=== PATIENT | male | born 1990 ===

== ENCOUNTER 2018-11-12 10:53 | Emergency (ER) | payer OTHER ==
[2018-11-12 10:56] VITALS: BMI 25.1
[2018-11-12 10:57] VITALS: TEMP 98.1
--- NOTE | 2018-11-12 12:13 | ED PDOC ---
Upper Extremity Pain/Injury Time Seen by Provider: 11/12/18 11:01 Chief Complaint (Nursing): Upper Extremity Problem/Injury Chief Complaint (Provider): Upper Extremity Problem/Injury History Per: Patient History/Exam Limitations: no limitations Onset/Duration Of Symptoms: Hrs (x1) Current Symptoms Are (Timing): Still Present Additional Complaint(s): 28 y/o male brought in by EMS for evaluation of an upper extremity injury, onset one hour prior to arrival. Patient states he was working out, doing stretching exercises when he sustained an injury to the right shoulder. PMD: non [facility] Provider Past Medical History Reviewed: Historical Data, Nursing Documentation, Vital Signs Vital Signs: Last Vital Signs Temp 98.1 F 11/12/18 10:56 Pulse 70 11/12/18 10:56 Resp 20 11/12/18 10:56 BP 145/79 11/12/18 10:56 Pulse Ox 100 11/12/18 10:56 - Medical History PMH: Asthma - Surgical History Surgical History: No Surg Hx - Family History Family History: States: Unknown Family Hx - Immunization History Hx Influenza Vaccination: No - Home Medications Home Medications: Ambulatory Orders Medication Instructions Recorded Ibuprofen [Motrin Tab] 600 mg PO Q8 PRN #60 tab 11/22/16 Oseltamivir Cap [Tamiflu] 75 mg PO BID #10 cap 11/22/16 Naproxen [Naprosyn] 500 mg PO BID PRN #15 tablet 11/12/18 - Allergies Allergies/Adverse Reactions: Allergies Allergy/AdvReac Type Severity Reaction Status Date / Time No Known Allergies Allergy Verified 11/22/16 17:51 Review of Systems ROS Statement: Except As Marked, All Systems Reviewed And Found Negative Musculoskeletal: Positive for: Shoulder Pain (right) Physical Exam - Reviewed Nursing Documentation Reviewed: Yes Vital Signs Reviewed: Yes - Physical Exam Appears: Positive for: In Acute Distress Pulses-Radial (L): 2+ Pulses-Radial (R): 2+ Extremity: Positive for: Deformity (to the right shoulder. ), Other (Sensations intact). Negative for: Normal ROM - ECG O2 Sat by Pulse Oximetry: 100 (RA) Pulse Ox Interpretation: Normal Medical Decision Making Medical Decision Making: Time: 1101 Impression: Right Shoulder Dislocation Plan: -- Shoulder Right XR Time: 1147 -- Morphine 2 mg IV -- Morphine 2 mg IV -- Morphinie 2 mg IV -- ED Nitrous Oxide via Mask Once -- Will perform Right Shoulder Reduction. See procedure note for further management. Time: 1201 -- Shoulder Right XR Time: 1237 1ST XR RESULTS FINDINGS: BONES: Normal. No fracture. JOINTS: Anterior inferior dislocation right humeral head with respect to the glenoid SOFT TISSUES: Normal. OTHER FINDINGS: None. IMPRESSION: Anterior inferior dislocation right humeral head with respect to the glenoid 2ND XR RESULTS FINDINGS: BONES: No definitive evidence of acute displaced fracture. JOINTS: Status post reduction previously noted anterior inferior dislocation right humeral head with respect to the glenoid SOFT TISSUES: Normal. OTHER FINDINGS: None. IMPRESSION: Status post reduction previously noted anterior inferior dislocation right humeral head with respect to the glenoid.. Scribe Attestation: Documented by Michelle Kaufman, acting as a scribe for Kylee Mcgraw MD. Provider Scribe Attestation: All medical record entries made by the Scribe were at my direction and personally dictated by me. I have reviewed the chart and agree that the record accurately reflects my personal performance of the history, physical exam, medical decision making, and the department course for this patient. I have also personally directed, reviewed, and agree with the discharge instructions and disposition. Procedures - Joint Reduction Joint Reduction Site: shoulder (R) Conscious Sedation: Yes Pre-Procedure NV Exam: Yes Post Joint Reduction Film: joint reduced Progress: -- Patient tolerated procedure well. Disposition - Clinical Impression Clinical Impression: Anterior shoulder dislocation - Disposition Referrals: Oliver Lomas MD [Medical Doctor] - Disposition: Routine/Home Disposition Time: 12:34 Condition: IMPROVED Prescriptions: Naproxen [Naprosyn] 500 mg PO BID PRN #15 tablet PRN Reason: Pain, Moderate (4-7) Instructions: Shoulder Dislocation Forms: [email or web address] [facility] (Telugu)
--- NOTE | 2018-11-12 12:40 | RAD ---
Date of service: 11/12/2018 PROCEDURE: Radiographs of the Right Shoulder HISTORY: Post-reduction COMPARISON: Comparison made with radiographs of the right shoulder performed earlier same day. FINDINGS: BONES: No definitive evidence of acute displaced fracture. JOINTS: Status post reduction previously noted anterior inferior dislocation right humeral head with respect to the glenoid SOFT TISSUES: Normal. OTHER FINDINGS: None. IMPRESSION: Status post reduction previously noted anterior inferior dislocation right humeral head with respect to the glenoid..
--- NOTE | 2018-11-12 12:41 | RAD ---
Date of service: 11/12/2018 PROCEDURE: Radiographs of the Right Shoulder HISTORY: R shoulder injury COMPARISON: No prior. FINDINGS: BONES: Normal. No fracture. JOINTS: Anterior inferior dislocation right humeral head with respect to the glenoid SOFT TISSUES: Normal. OTHER FINDINGS: None. IMPRESSION: Anterior inferior dislocation right humeral head with respect to the glenoid
[2018-11-12 13:34] VITALS: BP 131/73; PULSE 66; RESP 13
[2018-11-16 12:41] VITALS: O2SAT 100
== END 2018-11-12 13:32 | disposition home or self-care (01) ==
LOC: H.ER 10:53
DX: S43.014A Anterior dislocation of right humerus, initial encounter (principal); X50.9XXA Other and unspecified overexertion or strenuous movements or postures, initial encounter; Y92.89 Other specified places as the place of occurrence of the external cause
CPT/HCPCS: 23655; 73030; 96374; 96376; 99284; J2270